=== PATIENT | female | born 1955 | race Two or more races ===

== ENCOUNTER 2017-05-13 21:42 | Emergency (ER) | payer OTHER ==
[~2017-05-13] VITALS: Ht 157.5 cm; Wt 70.3 kg
--- NOTE | 2017-05-13 22:37 | NUR ---
DR BASSEM VALERIO MD AT BEDSIDE FOR MSE.
--- NOTE | 2017-05-13 22:41 | NUR ---
PT STATES SHE FEELS MORE TIRED THAN USUAL, AND JUST "WANTS TO SLEEP". STATES HE BELIEVES PT IS DEPRESSED, AND BROUGHT HER IN. PT DENIES SI, OR DESIRE TO HARM TO SELF OR OTHERS. A&OX4, ANSWERS APPROPRIATELY. PT IS CALM AND COOPERATIVE. NO DISTRESS NOTED.
[2017-05-13] MEDS ORDERED: METF500T PO (22:44)
[2017-05-13] MEDS ORDERED: ATOR40TA29 PO (22:44)
[2017-05-13] MEDS ORDERED: LORAZEPAM 0.5 MG TABLET PO ONE (22:45)
[2017-05-13] MEDS ORDERED: LORAZEPAM 1 MG TABLET ONE (22:46)
--- NOTE | 2017-05-13 22:55 | NUR ---
Patient discharged to home in stable conditon. Written and verbal after care instructions given. Patient verbalizes understanding of instructions. Pt ambulated from ER, accompanied by . No distress noted. Verbalizes that she will not harm self or others.
[2017-05-13 22:59] VITALS: BP 120/86
== END 2017-05-13 23:00 | disposition home or self-care (01) ==
LOC: ER 21:44
DX: G47.00 Insomnia, unspecified (principal); F32.9 Major depressive disorder, single episode, unspecified; E11.9 Type 2 diabetes mellitus without complications; Z88.2 Allergy status to sulfonamides
CPT/HCPCS: A4663

== ENCOUNTER 2018-09-14 07:50 | Emergency (ER) | payer MEDICAID, OTHER ==
[~2018-09-14] VITALS: Ht 154.9 cm; Wt 70.3 kg
[~2018-09-14 07:50] MED LIST: ATOR40TA29 PO; METF500T PO
--- NOTE | 2018-09-14 08:18 | NUR ---
IMAN CRUZ AT BEDSIDE FOR MSE.
[2018-09-14] MEDS ORDERED: IV NORMAL SALINE 1000 ML BAG IV ONE (08:30)
[2018-09-14 08:39] LABS: BASOPHILS # (AUTO) 0.1 K/uL (0.0-8.0); BASOPHILS % (AUTO) 0.9 % (0.0-2.0); EOSINOPHILS # (AUTO) 0.4 K/uL (0.0-0.7); EOSINOPHILS % (AUTO) 5.2 % (0.0-7.0); HEMOGLOBIN 11.8 g/dL (10.9-14.3); LYMPHOCYTES # (AUTO) 2.2 K/uL (20.0-40.0); LYMPHOCYTES % (AUTO) 28.2 % (20.5-51.5); MEAN CORPUSCULAR HEMOGLOBIN 25.4 uug (24.7-32.8); MEAN CORPUSCULAR HGB CONC 33 g/dL (32.3-35.6); MEAN CORPUSCULAR VOLUME 77.2 fL (75.5-95.3); MONOCYTES # (AUTO) 0.5 K/uL (2.0-10.0); MONOCYTES % (AUTO) 6.8 % (0.0-11.0); NEUTROPHILS # (AUTO) 4.6 K/uL (1.8-8.9); NEUTROPHILS % (AUTO) 58.9 % (38.5-71.5); PLATELET COUNT (AUTO) 224 K/uL (179-408); RED BLOOD CELL COUNT(AUTO) 4.67 MIL/uL (3.63-4.92); WHITE BLOOD COUNT (AUTO) 7.8 K/uL (3.8-11.8)
[2018-09-14 08:44] LABS: CREATININE 0.8 mg/dL (0.6-1.3); POTASSIUM 3.9 mmol/L (3.5-5.1)
[2018-09-14 08:56] LABS: BILIRUBIN,DIRECT 0.1 mg/dL (0.0-0.2); BILIRUBIN,TOTAL 0.5 mg/dL (0.2-1.0); TOTAL PROTEIN, SERUM 7.7 g/dL (6.4-8.2)
--- NOTE | 2018-09-14 09:13 | NUR ---
20G IV ACCESS IN LAC REMOVED PRIOR TO D/C - INNER CANNULA INTACT.
--- NOTE | 2018-09-14 09:13 | NUR ---
Patient discharged to home in stable conditon. Written and verbal after care instructions given. Patient verbalizes understanding of instructions. ALL BELONGINGS W/ PT. PT SELF-AMBULATED W/O DIFFICULTY.
[2018-09-14 09:14] VITALS: BP 122/79
[2018-09-14] MEDS ORDERED: AZITHROMYCIN 250 MG TABLET PO ONE (09:15)
[2018-09-14] MEDS ORDERED: AZITHROMYCIN 250 MG TABLET ONE (09:15)
== END 2018-09-14 09:15 | disposition home or self-care (01) ==
LOC: ER 07:50
DX: J45.909 Unspecified asthma, uncomplicated (principal); E78.00 Pure hypercholesterolemia, unspecified; E11.9 Type 2 diabetes mellitus without complications; F32.9 Major depressive disorder, single episode, unspecified; Z88.2 Allergy status to sulfonamides; Z79.899 Other long term (current) drug therapy
CPT/HCPCS: 36415; 70030-TC; 71045; 85025; 93005; A4663; J7030; Q0144